=== PATIENT | female | born 1950 | race Caucasian/White ===

== ENCOUNTER → 2016-08-10 16:38 | Outpatient (CLI) | payer MEDICARE ==
[2015-02-18 12:16] VITALS: BMI 26.7
[~2016-08-10 16:38] MED LIST: COREG 3.1253.125 MG PO; VIBRAMYCIN 100100 MG PO
== END | disposition home or self-care (01) ==
LOC: D.MAMMO 09:30
DX: Z85.3 Personal history of malignant neoplasm of breast (principal)

== ENCOUNTER 2017-07-19 18:27 | Emergency (ER) | payer MEDICARE ==
[2015-02-18 12:16] VITALS: BMI 26.7
== END 2017-07-19 21:29 | disposition home or self-care (01) ==
LOC: D.ER 18:27
DX: S30.0XXA Contusion of lower back and pelvis, initial encounter (principal); V43.52XA Car driver injured in collision with other type car in traffic accident, initial encounter; Y93.89 Activity, other specified; Y92.410 Unspecified street and highway as the place of occurrence of the external cause; S62.304A Unspecified fracture of fourth metacarpal bone, right hand, initial encounter for closed fracture; K21.9 Gastro-esophageal reflux disease without esophagitis; I10 Essential (primary) hypertension

== ENCOUNTER → 2017-08-09 16:03 | Outpatient (CLI) | payer MEDICARE ==
[2015-02-18 12:16] VITALS: BMI 26.7
== END | disposition home or self-care (01) ==
LOC: D.CT 16:03
DX: R22.1 Localized swelling, mass and lump, neck (principal)

== ENCOUNTER → 2020-02-06 11:27 | Outpatient (CLI) | payer MEDICARE ==
[2015-02-18 12:16] VITALS: BMI 26.7
== END | disposition home or self-care (01) ==
LOC: D.HCCECHO 11:27
PROVIDERS: ATTEND Internal Medicine Cardiovascular Disease
DX: I25.10 Atherosclerotic heart disease of native coronary artery without angina pectoris (principal)

== ENCOUNTER 2020-02-27 17:00 | Outpatient (CLI) | payer MEDICARE ==
[2015-02-18 12:16] VITALS: BMI 26.7
== END 2020-03-01 23:59 | disposition home or self-care (01) ==
LOC: D.MAMMO 17:00
PROVIDERS: ATTEND Clinical Nurse Specialist Family Health
DX: Z85.3 Personal history of malignant neoplasm of breast (principal)